=== PATIENT | male | born 1980 | race Caucasian/White ===

== ENCOUNTER 2016-08-20 19:33 | Emergency (ER) | payer SELFPAY ==
[~2016-08-20] VITALS: Ht 175.3 cm; Wt 102.0 kg
[2016-08-21] MEDS ORDERED: LIDOCAINE HCL/EPINEPHRINE 1%-EPI 1:100,000 30 ML VIAL INFIL ONE (01:00)
[2016-08-21] MEDS ORDERED: TETANUS, DIPHTHERIA, PERTUSSIS VAC/PF 0.5ML (>7YR OLD) IM ONE (01:00)
[2016-08-21] MEDS ORDERED: LIDOCAINE HCL 1%/EPI 1:200,000 30 ML VIAL MC NR (01:48)
[2016-08-21 03:06] VITALS: BP 142/86
== END 2016-08-21 03:11 | disposition home or self-care (01) ==
LOC: ER 19:33
DX: S81.811A Laceration without foreign body, right lower leg, initial encounter (principal); W25.XXXA Contact with sharp glass, initial encounter; Y93.89 Activity, other specified; Y92.488 Other paved roadways as the place of occurrence of the external cause
CPT/HCPCS: 12001; 73590; 90471; 90715; 99284; Z7610

== ENCOUNTER 2017-04-04 20:01 | Emergency (ER) | payer SELFPAY ==
[~2017-04-04] VITALS: Ht 185.4 cm; Wt 107.0 kg
[2017-04-05] MEDS ORDERED: HYDROCODONE/ACETAMINOPHEN 5/325MG TABLET PO ONE (00:15)
[2017-04-05] MEDS ORDERED: LIDOCAINE HCL/EPINEPHRINE 1%-EPI 1:100,000 20 ML VIAL INFIL ONE (00:15)
[2017-04-05] MEDS ORDERED: BACITRACIN ZINC OINT UDPKT TOP ONE (00:15)
[2017-04-05] MEDS ORDERED: LIDOCAINE HCL 1%/EPI 1:200,000 30 ML VIAL IJ SCH (01:24)
[2017-04-05] MEDS ORDERED: CEFTRIAXONE SODIUM 1 G/VIAL IM ONE (02:00)
[2017-04-05 02:26] VITALS: BP 126/77
== END 2017-04-05 02:43 | disposition home or self-care (01) ==
LOC: ER 04-05
DX: S01.312A Laceration without foreign body of left ear, initial encounter (principal); Y08.89XA Assault by other specified means, initial encounter; Y93.89 Activity, other specified; Y92.89 Other specified places as the place of occurrence of the external cause; Y99.8 Other external cause status
CPT/HCPCS: 12013; 96372; 99283; J0696; J3490; Z7610

== ENCOUNTER 2017-04-12 08:33 | Emergency (ER) | payer SELFPAY ==
[~2017-04-12] VITALS: Ht 185.4 cm; Wt 104.0 kg
[2017-04-12 09:58] VITALS: BP 148/84
== END 2017-04-12 12:06 | disposition home or self-care (01) ==
LOC: ER 08:33
DX: S60.9 Unspecified superficial injury of wrist, hand and fingers (principal); X58.XXXD Exposure to other specified factors, subsequent encounter; Y93.89 Activity, other specified; Y99.8 Other external cause status; Y92.89 Other specified places as the place of occurrence of the external cause
CPT/HCPCS: 99281

== ENCOUNTER 2017-04-28 15:19 | Emergency (ER) | payer SELFPAY ==
[~2017-04-28] VITALS: Ht 177.8 cm; Wt 104.0 kg
[2017-04-28] MEDS ORDERED: HYDROCODONE/ACETAMINOPHEN 5/325MG TABLET PO ONE (16:30)
[2017-04-28 17:52] VITALS: BP 132/87
== END 2017-04-28 18:05 | disposition home or self-care (01) ==
LOC: ER 15:44
DX: S01.81XA Laceration without foreign body of other part of head, initial encounter (principal); Y09 Assault by unspecified means; Y93.89 Activity, other specified; F17.200 Nicotine dependence, unspecified, uncomplicated; Y92.89 Other specified places as the place of occurrence of the external cause; Y99.8 Other external cause status
CPT/HCPCS: 12011; 70450; 70486; 99284; Z7610

== ENCOUNTER 2019-02-19 20:57 | Emergency (ER) | payer SELFPAY ==
[~2019-02-19] VITALS: Ht 185.4 cm; Wt 95.0 kg
[2019-02-20] MEDS ORDERED: KETOROLAC 60MG/2ML VIAL IM ONE (00:45)
[2019-02-20 06:00] VITALS: BP 129/89
== END 2019-02-20 06:15 | disposition home or self-care (01) ==
LOC: ER 20:57
DX: S02.30XA Fracture of orbital floor, unspecified side, initial encounter for closed fracture (principal); S63.254A Unspecified dislocation of right ring finger, initial encounter; J32.0 Chronic maxillary sinusitis; F10.129 Alcohol abuse with intoxication, unspecified; Y90.8 Blood alcohol level of 240 mg/100 ml or more; W19.XXXA Unspecified fall, initial encounter; Y93.9 Activity, unspecified; Y92.9 Unspecified place or not applicable
CPT/HCPCS: 29130; 36415; 70486; 73130; 80320; 96372; 99284; J1885; Z7610; G0480